=== PATIENT | female | born 1935 | race Caucasian/White ===

== ENCOUNTER 2022-05-15 05:59 | Inpatient (IN) | payer BC ==
[2022-05-15] MEDS ORDERED: ALBUTEROL SO4 2.5/IPRATROPIUM 0.5 INH SOL 3 ML VIAL.NEB. NEB ONE ×2 (08:34→08:41)
[2022-05-15 08:37] LABS: EOS % 0.3 % (0-4.5); HEMATOCRIT 38.3 % (32.4-45.2); HEMOGLOBIN 12.5 GM/dL (10.7-15.3); LYMPH % 10.6 % (8-40); MCH 33.4 pg (25.7-33.7); MCHC 32.6 g/dl (32.0-36.0); MEAN CELL VOLUME 102.5 fl (80-96); MEAN PLT VOLUME 11.5 fl (7.5-11.1); MONO % 8.7 % (3.8-10.2); NEUT % 79.4 % (42.8-82.8); PLATELET COUNT 153 10^3/uL (134-434); RBC 3.74 M/mm3 (3.60-5.2); RDW 15.4 % (11.6-15.6); WHITE BLOOD COUNT 9.2 K/mm3 (4.0-10.0)
[2022-05-15 08:54] LABS: CALCIUM 9.3 mg/dL (8.5-10.1)
[2022-05-15 08:55] LABS: ALBUMIN 3.4 g/dl (3.4-5.0); BLOOD UREA NITROGEN 29.3 mg/dL (7-18)
[2022-05-15 08:58] LABS: CREATININE 1.3 mg/dL (0.55-1.3)
[2022-05-15 09:00] LABS: BILIRUBIN,TOTAL 0.8 mg/dL (0.2-1); TOT PROT 6.7 g/dl (6.4-8.2)
[2022-05-15] MEDS ORDERED: FUROSEMIDE 40 MG/4 ML INJECTABLE VIAL IVPUSH ONE (09:06)
[2022-05-15] MEDS ORDERED: FUROSEMIDE 40 MG TABLET (FP) ONE ×2 (09:30→17:46)
[2022-05-15] MEDS ORDERED: REMDESIVIR 200 MG in SODIUM CHLORIDE 250 ML IVPB ONE (10:22)
[2022-05-15] MEDS ORDERED: DEXAMETHASONE SOD PHOSPHATE 4 MG/1 ML VIAL IVPUSH ONE (10:22)
[2022-05-15] MEDS ORDERED: DEXAMETHASONE SOD PHOSPHATE 4 MG/1 ML VIAL ONE (10:29)
[2022-05-15] MEDS ORDERED: ACETAMINOPHEN 325 MG TABLET (FP) PO PRN (12:49)
[2022-05-15 14:33] VITALS: BMI 37.8
[2022-05-15] MEDS: PANTOPRAZOLE 40 MG TABLET PO SCH (17:45)
[2022-05-15] MEDS: FUROSEMIDE 40 MG TABLET (FP) PO SCH (17:45)
[2022-05-15] MEDS ORDERED: PANTOPRAZOLE 40 MG TABLET PO ONE (17:46)
[2022-05-15] MEDS: CALCIUM (OYSTER SHELL) 500 MG TABLET (FP) PO SCH (22:19)
[2022-05-15] MEDS: ATORVASTATIN CA 10 MG TABLET (FP) PO SCH (22:19)
[2022-05-15] MEDS: APIXABAN 5 MG TABLET PO SCH (22:19)
[2022-05-16] MEDS: LEVOTHYROXINE NA 75 MCG TABLET (FP) PO SCH (06:21)
[2022-05-16] MEDS: FUROSEMIDE 40 MG TABLET (FP) PO SCH ×2 (06:21→13:22)
[2022-05-16] MEDS: CALCIUM (OYSTER SHELL) 500 MG TABLET (FP) PO SCH ×2 (09:57→21:47)
[2022-05-16] MEDS: DEXAMETHASONE SOD PHOSPHATE 4 MG/1 ML VIAL IVPUSH SCH (09:57)
[2022-05-16] MEDS: ALLOPURINOL 300 MG TABLET (FP) PO SCH (09:57)
[2022-05-16] MEDS: PANTOPRAZOLE 40 MG TABLET PO SCH (09:57)
[2022-05-16] MEDS: APIXABAN 5 MG TABLET PO SCH ×2 (09:57→21:47)
[2022-05-16] MEDS: ATENOLOL 50 MG TABLET (FP) PO SCH (09:57)
[2022-05-16] MEDS: THIAMINE HCL 100 MG TABLET (FP) PO SCH (09:57)
[2022-05-16] MEDS: SPIRONOLACTONE 25 MG TABLET PO SCH (09:57)
[2022-05-16 10:18] LABS: BASO % 0.5 % (0-2.0); EOS % 0.1 % (0-4.5); HEMATOCRIT 40.2 % (32.4-45.2); HEMOGLOBIN 12.7 GM/dL (10.7-15.3); LYMPH % 17.5 % (8-40); MCH 33.3 pg (25.7-33.7); MCHC 31.7 g/dl (32.0-36.0); MEAN CELL VOLUME 105.1 fl (80-96); MEAN PLT VOLUME 11.1 fl (7.5-11.1); NEUT % 69.9 % (42.8-82.8); PLATELET COUNT 154 10^3/uL (134-434); RBC 3.83 M/mm3 (3.60-5.2); RDW 15.4 % (11.6-15.6); WHITE BLOOD COUNT 6.5 K/mm3 (4.0-10.0)
[2022-05-16 10:42] LABS: ALBUMIN 3.5 g/dl (3.4-5.0); BLOOD UREA NITROGEN 25.3 mg/dL (7-18); CALCIUM 9.7 mg/dL (8.5-10.1)
[2022-05-16 10:45] LABS: CREATININE 1.3 mg/dL (0.55-1.3)
[2022-05-16 10:47] LABS: BILIRUBIN,TOTAL 0.9 mg/dL (0.2-1)
[2022-05-16 10:52] LABS: ANISOCYTOSIS 2+; MACROCYTOSIS 2+
[2022-05-16] MEDS: REMDESIVIR 100 MG in SODIUM CHLORIDE 250 ML IVPB SCH (12:20)
[2022-05-16] MEDS ORDERED: guaiFENesin 200 MG/10 ML 10 ML UNIT-DOSE CUPS PO PRN (15:11)
[2022-05-16] MEDS: ATORVASTATIN CA 10 MG TABLET (FP) PO SCH (21:46)
[2022-05-17] MEDS: LEVOTHYROXINE NA 75 MCG TABLET (FP) PO SCH (06:53)
[2022-05-17] MEDS: FUROSEMIDE 40 MG TABLET (FP) PO SCH ×2 (06:53→15:16)
[2022-05-17 09:37] LABS: BASO % 0.3 % (0-2.0); EOS % 0.1 % (0-4.5); HEMOGLOBIN 12.8 GM/dL (10.7-15.3); LYMPH % 14.3 % (8-40); MCH 33.4 pg (25.7-33.7); MEAN CELL VOLUME 104.1 fl (80-96); MEAN PLT VOLUME 10.8 fl (7.5-11.1); MONO % 9.8 % (3.8-10.2); NEUT % 75.5 % (42.8-82.8); PLATELET COUNT 149 10^3/uL (134-434); RBC 3.84 M/mm3 (3.60-5.2); RDW 15.2 % (11.6-15.6); WHITE BLOOD COUNT 7.2 K/mm3 (4.0-10.0)
[2022-05-17] MEDS: ALLOPURINOL 300 MG TABLET (FP) PO SCH (09:49)
[2022-05-17] MEDS: APIXABAN 5 MG TABLET PO SCH ×2 (09:49→22:07)
[2022-05-17] MEDS: CALCIUM (OYSTER SHELL) 500 MG TABLET (FP) PO SCH ×2 (09:49→22:07)
[2022-05-17] MEDS: ATENOLOL 50 MG TABLET (FP) PO SCH (09:50)
[2022-05-17] MEDS: THIAMINE HCL 100 MG TABLET (FP) PO SCH (09:50)
[2022-05-17] MEDS: DEXAMETHASONE SOD PHOSPHATE 4 MG/1 ML VIAL IVPUSH SCH (09:50)
[2022-05-17] MEDS: PANTOPRAZOLE 40 MG TABLET PO SCH (09:50)
[2022-05-17 10:01] LABS: ALBUMIN 3.6 g/dl (3.4-5.0); BLOOD UREA NITROGEN 33.6 mg/dL (7-18); CALCIUM 9.5 mg/dL (8.5-10.1); MAGNESIUM 2.5 mg/dL (1.8-2.4)
[2022-05-17 10:05] LABS: BILIRUBIN,TOTAL 0.6 mg/dL (0.2-1); CREATININE 1.3 mg/dL (0.55-1.3); PHOSPHOROUS 3.6 mg/dL (2.5-4.9)
[2022-05-17 10:06] LABS: TOT PROT 6.9 g/dl (6.4-8.2)
[2022-05-17 10:10] LABS: N-TERMINAL BNP 3818.2 pg/ml (5-450)
[2022-05-17] MEDS: REMDESIVIR 100 MG in SODIUM CHLORIDE 250 ML IVPB SCH (12:22)
[2022-05-17] MEDS: BENZOCAINE/MENTH/CETYLPYRD CL 1 EACH LOZENGE MM PRN (17:06)
[2022-05-17] MEDS: ATORVASTATIN CA 10 MG TABLET (FP) PO SCH (22:07)
[2022-05-18] MEDS: FUROSEMIDE 40 MG TABLET (FP) PO SCH ×2 (06:42→14:03)
[2022-05-18] MEDS: LEVOTHYROXINE NA 75 MCG TABLET (FP) PO SCH (06:42)
[2022-05-18 09:03] LABS: HEMATOCRIT 40.9 % (32.4-45.2); HEMOGLOBIN 13.1 GM/dL (10.7-15.3); MCH 33.4 pg (25.7-33.7); MCHC 32.1 g/dl (32.0-36.0); MEAN CELL VOLUME 104.2 fl (80-96); MEAN PLT VOLUME 11.3 fl (7.5-11.1); PLATELET COUNT 159 10^3/uL (134-434); RBC 3.93 M/mm3 (3.60-5.2); RDW 15.3 % (11.6-15.6); WHITE BLOOD COUNT 9.1 K/mm3 (4.0-10.0)
[2022-05-18 09:25] LABS: CALCIUM 9.8 mg/dL (8.5-10.1)
[2022-05-18 09:26] LABS: MAGNESIUM 2.4 mg/dL (1.8-2.4)
[2022-05-18 09:29] LABS: CREATININE 1.4 mg/dL (0.55-1.3); PHOSPHOROUS 3.7 mg/dL (2.5-4.9)
[2022-05-18] MEDS: CALCIUM (OYSTER SHELL) 500 MG TABLET (FP) PO SCH ×2 (10:41→23:15)
[2022-05-18] MEDS: PANTOPRAZOLE 40 MG TABLET PO SCH (10:41)
[2022-05-18] MEDS: THIAMINE HCL 100 MG TABLET (FP) PO SCH (10:41)
[2022-05-18] MEDS: SPIRONOLACTONE 25 MG TABLET PO SCH (10:42)
[2022-05-18] MEDS: DEXAMETHASONE SOD PHOSPHATE 4 MG/1 ML VIAL IVPUSH SCH (10:42)
[2022-05-18] MEDS: APIXABAN 5 MG TABLET PO SCH ×2 (10:42→23:15)
[2022-05-18] MEDS: ATENOLOL 50 MG TABLET (FP) PO SCH (10:42)
[2022-05-18] MEDS: ALLOPURINOL 300 MG TABLET (FP) PO SCH (10:42)
[2022-05-18] MEDS: ATORVASTATIN CA 10 MG TABLET (FP) PO SCH (23:15)
[2022-05-19] MEDS: LEVOTHYROXINE NA 75 MCG TABLET (FP) PO SCH (06:26)
[2022-05-19 11:42] LABS: HEMATOCRIT 43.5 % (32.4-45.2); HEMOGLOBIN 14.2 GM/dL (10.7-15.3); MCH 33.8 pg (25.7-33.7); MCHC 32.6 g/dl (32.0-36.0); MEAN CELL VOLUME 103.6 fl (80-96); MEAN PLT VOLUME 11.4 fl (7.5-11.1); PLATELET COUNT 163 10^3/uL (134-434); WHITE BLOOD COUNT 9.9 K/mm3 (4.0-10.0)
[2022-05-19] MEDS: CALCIUM (OYSTER SHELL) 500 MG TABLET (FP) PO SCH ×2 (11:54→22:19)
[2022-05-19] MEDS: PANTOPRAZOLE 40 MG TABLET PO SCH (11:54)
[2022-05-19] MEDS: THIAMINE HCL 100 MG TABLET (FP) PO SCH (11:54)
[2022-05-19] MEDS: ATENOLOL 50 MG TABLET (FP) PO SCH (11:54)
[2022-05-19] MEDS: APIXABAN 5 MG TABLET PO SCH ×2 (11:54→22:19)
[2022-05-19] MEDS: ALLOPURINOL 300 MG TABLET (FP) PO SCH (11:54)
[2022-05-19 12:21] LABS: BLOOD UREA NITROGEN 50.9 mg/dL (7-18); MAGNESIUM 2.5 mg/dL (1.8-2.4)
[2022-05-19 12:25] LABS: CREATININE 1.5 mg/dL (0.55-1.3); PHOSPHOROUS 3.4 mg/dL (2.5-4.9)
[2022-05-19] MEDS: DEXAMETHASONE SOD PHOSPHATE 4 MG/1 ML VIAL IVPUSH SCH (12:43)
[2022-05-19] MEDS: ATORVASTATIN CA 10 MG TABLET (FP) PO SCH (22:19)
[2022-05-20] MEDS: FUROSEMIDE 40 MG TABLET (FP) PO SCH ×2 (06:22→16:12)
[2022-05-20] MEDS: LEVOTHYROXINE NA 75 MCG TABLET (FP) PO SCH (06:22)
[2022-05-20 07:57] LABS: BASO % 0.3 % (0-2.0); EOS % 0.1 % (0-4.5); HEMATOCRIT 41.7 % (32.4-45.2); HEMOGLOBIN 13.4 GM/dL (10.7-15.3); LYMPH % 15.3 % (8-40); MCHC 32.1 g/dl (32.0-36.0); MEAN PLT VOLUME 11.3 fl (7.5-11.1); MONO % 7.6 % (3.8-10.2); NEUT % 76.7 % (42.8-82.8); PLATELET COUNT 142 10^3/uL (134-434); RBC 4.05 M/mm3 (3.60-5.2); RDW 14.8 % (11.6-15.6); WHITE BLOOD COUNT 8.6 K/mm3 (4.0-10.0)
[2022-05-20 08:25] LABS: CALCIUM 9.5 mg/dL (8.5-10.1)
[2022-05-20 08:26] LABS: BLOOD UREA NITROGEN 51.7 mg/dL (7-18); MAGNESIUM 2.5 mg/dL (1.8-2.4)
[2022-05-20 08:29] LABS: CREATININE 1.4 mg/dL (0.55-1.3); PHOSPHOROUS 3.5 mg/dL (2.5-4.9)
[2022-05-20 08:37] LABS: CALCIUM 9.2 mg/dL (8.5-10.1)
[2022-05-20 08:38] LABS: ALBUMIN 3.2 g/dl (3.4-5.0); BLOOD UREA NITROGEN 47.7 mg/dL (7-18)
[2022-05-20 08:41] LABS: CREATININE 1.3 mg/dL (0.55-1.3)
[2022-05-20 08:42] LABS: BILIRUBIN,TOTAL 0.5 mg/dL (0.2-1); TOT PROT 6.3 g/dl (6.4-8.2)
[2022-05-20 08:46] LABS: N-TERMINAL BNP 2281.6 pg/ml (5-450)
[2022-05-20] MEDS: ALLOPURINOL 300 MG TABLET (FP) PO SCH (10:42)
[2022-05-20] MEDS: APIXABAN 5 MG TABLET PO SCH ×2 (10:42→21:31)
[2022-05-20] MEDS: CALCIUM (OYSTER SHELL) 500 MG TABLET (FP) PO SCH ×2 (10:42→21:31)
[2022-05-20] MEDS: PANTOPRAZOLE 40 MG TABLET PO SCH (10:42)
[2022-05-20] MEDS: ATENOLOL 50 MG TABLET (FP) PO SCH (10:43)
[2022-05-20] MEDS: SPIRONOLACTONE 25 MG TABLET PO SCH (10:43)
[2022-05-20] MEDS: DEXAMETHASONE SOD PHOSPHATE 4 MG/1 ML VIAL IVPUSH SCH (10:43)
[2022-05-20] MEDS: THIAMINE HCL 100 MG TABLET (FP) PO SCH (10:43)
[2022-05-20] MEDS: ATORVASTATIN CA 10 MG TABLET (FP) PO SCH (21:31)
[2022-05-21] MEDS: LEVOTHYROXINE NA 75 MCG TABLET (FP) PO SCH (06:17)
[2022-05-21] MEDS: FUROSEMIDE 40 MG TABLET (FP) PO SCH ×2 (06:17→14:01)
[2022-05-21] MEDS: PANTOPRAZOLE 40 MG TABLET PO SCH (09:47)
[2022-05-21] MEDS: ATENOLOL 50 MG TABLET (FP) PO SCH (09:47)
[2022-05-21] MEDS: APIXABAN 5 MG TABLET PO SCH ×2 (09:47→22:13)
[2022-05-21] MEDS: THIAMINE HCL 100 MG TABLET (FP) PO SCH (09:47)
[2022-05-21] MEDS: CALCIUM (OYSTER SHELL) 500 MG TABLET (FP) PO SCH ×2 (09:47→22:12)
[2022-05-21] MEDS: ALLOPURINOL 300 MG TABLET (FP) PO SCH (09:48)
[2022-05-21] MEDS: DEXAMETHASONE SOD PHOSPHATE 4 MG/1 ML VIAL IVPUSH SCH (09:48)
[2022-05-21] MEDS: BENZOCAINE/MENTH/CETYLPYRD CL 1 EACH LOZENGE MM PRN (09:56)
[2022-05-21] MEDS: ATORVASTATIN CA 10 MG TABLET (FP) PO SCH (22:13)
[2022-05-22] MEDS: LEVOTHYROXINE NA 75 MCG TABLET (FP) PO SCH (06:26)
[2022-05-22] MEDS: FUROSEMIDE 40 MG TABLET (FP) PO SCH ×2 (06:26→13:20)
[2022-05-22] MEDS: CALCIUM (OYSTER SHELL) 500 MG TABLET (FP) PO SCH ×2 (11:12→22:41)
[2022-05-22] MEDS: SPIRONOLACTONE 25 MG TABLET PO SCH (11:12)
[2022-05-22] MEDS: ALLOPURINOL 300 MG TABLET (FP) PO SCH (11:12)
[2022-05-22] MEDS: ATENOLOL 50 MG TABLET (FP) PO SCH (11:12)
[2022-05-22] MEDS: APIXABAN 5 MG TABLET PO SCH ×2 (11:12→22:41)
[2022-05-22] MEDS: PANTOPRAZOLE 40 MG TABLET PO SCH (11:12)
[2022-05-22] MEDS: THIAMINE HCL 100 MG TABLET (FP) PO SCH (11:12)
[2022-05-22] MEDS: DEXAMETHASONE SOD PHOSPHATE 4 MG/1 ML VIAL IVPUSH SCH (11:13)
[2022-05-22] MEDS: ATORVASTATIN CA 10 MG TABLET (FP) PO SCH (22:41)
[2022-05-23] MEDS: FUROSEMIDE 40 MG TABLET (FP) PO SCH ×2 (05:50→15:37)
[2022-05-23] MEDS: LEVOTHYROXINE NA 75 MCG TABLET (FP) PO SCH (06:04)
[2022-05-23 09:24] LABS: HEMATOCRIT 47.2 % (32.4-45.2); HEMOGLOBIN 15.1 GM/dL (10.7-15.3); MCH 33.2 pg (25.7-33.7); MCHC 32.1 g/dl (32.0-36.0); MEAN CELL VOLUME 103.5 fl (80-96); MEAN PLT VOLUME 11.4 fl (7.5-11.1); PLATELET COUNT 157 10^3/uL (134-434); RBC 4.56 M/mm3 (3.60-5.2); RDW 14.8 % (11.6-15.6)
[2022-05-23] MEDS: ATENOLOL 50 MG TABLET (FP) PO SCH (09:26)
[2022-05-23] MEDS: DEXAMETHASONE SOD PHOSPHATE 4 MG/1 ML VIAL IVPUSH SCH (09:26)
[2022-05-23] MEDS: THIAMINE HCL 100 MG TABLET (FP) PO SCH (09:26)
[2022-05-23] MEDS: ALLOPURINOL 300 MG TABLET (FP) PO SCH (09:26)
[2022-05-23] MEDS: CALCIUM (OYSTER SHELL) 500 MG TABLET (FP) PO SCH ×2 (09:26→22:28)
[2022-05-23] MEDS: PANTOPRAZOLE 40 MG TABLET PO SCH (09:26)
[2022-05-23] MEDS: APIXABAN 5 MG TABLET PO SCH ×2 (09:26→22:29)
[2022-05-23 09:39] LABS: BLOOD UREA NITROGEN 58.6 mg/dL (7-18); MAGNESIUM 2.7 mg/dL (1.8-2.4)
[2022-05-23 09:42] LABS: PHOSPHOROUS 3.7 mg/dL (2.5-4.9)
[2022-05-23 09:43] LABS: CREATININE 1.5 mg/dL (0.55-1.3)
[2022-05-23] MEDS ORDERED: LACTATED RINGERS SOLUTION 1,000 ML/1,000 ML INFUS.BAG IV SCH (11:15)
[2022-05-23 21:00] VITALS: RESP 20
[2022-05-23] MEDS: ATORVASTATIN CA 10 MG TABLET (FP) PO SCH (22:29)
[2022-05-24] MEDS: FUROSEMIDE 40 MG TABLET (FP) PO SCH ×2 (06:05→15:22)
[2022-05-24] MEDS: LEVOTHYROXINE NA 75 MCG TABLET (FP) PO SCH (06:05)
[2022-05-24] MEDS: CALCIUM (OYSTER SHELL) 500 MG TABLET (FP) PO SCH (11:56)
[2022-05-24] MEDS: SPIRONOLACTONE 25 MG TABLET PO SCH (11:56)
[2022-05-24] MEDS: ATENOLOL 50 MG TABLET (FP) PO SCH (11:56)
[2022-05-24] MEDS: APIXABAN 5 MG TABLET PO SCH (11:56)
[2022-05-24] MEDS: ALLOPURINOL 300 MG TABLET (FP) PO SCH (11:56)
[2022-05-24] MEDS: THIAMINE HCL 100 MG TABLET (FP) PO SCH (11:57)
[2022-05-24] MEDS: PANTOPRAZOLE 40 MG TABLET PO SCH (11:57)
[2022-05-24] MEDS: DEXAMETHASONE SOD PHOSPHATE 4 MG/1 ML VIAL IVPUSH SCH (11:57)
[2022-05-24 14:44] VITALS: BP 139/72; PULSE 89; TEMP 98.5
== END 2022-05-24 18:53 | DRG 177 ==
LOC: JER 05:59 → JERBED 10:22 → J7W 18:37
PROVIDERS: ADMIT Internal Medicine; ATTEND Internal Medicine
PROC: XW033E5 Introduction of Remdesivir Anti-infective into Peripheral Vein, Percutaneous Approach, New Technology Group 5 (ICD-10-PCS; principal; 2022-05-15)
DX: U07.1 COVID-19 (principal); I50.33 Acute on chronic diastolic (congestive) heart failure; J12.82 Pneumonia due to coronavirus disease 2019; J96.01 Acute respiratory failure with hypoxia; J81.0 Acute pulmonary edema; I13.0 Hypertensive heart and chronic kidney disease with heart failure and stage 1 through stage 4 chronic kidney disease, or unspecified chronic kidney disease; I48.21 Permanent atrial fibrillation; E03.9 Hypothyroidism, unspecified; I50.9 Heart failure, unspecified; N18.9 Chronic kidney disease, unspecified; E78.5 Hyperlipidemia, unspecified; I25.10 Atherosclerotic heart disease of native coronary artery without angina pectoris; N18.2 Chronic kidney disease, stage 2 (mild); R73.9 Hyperglycemia, unspecified
CPT/HCPCS: 0241U-QW; 36415; 71045-TC-FY; 80048; 80053; 82962; 83735; 83880; 84100; 84484; 85025; 85027; 93005; 93010; 93306-TC; 94761; 97116-GP; 97162-GP; 99285-25; C9399; C9803-CS; U0003; U0005